=== PATIENT | female | born 1985 | race Caucasian/White ===

== ENCOUNTER 2018-05-04 08:26 | Emergency (ER) | payer SELFPAY | END 2018-05-04 09:16 | disposition home or self-care (01) | LOC: FTE 08:26 | DX: S80.12XA Contusion of left lower leg, initial encounter (principal); W18.39XA Other fall on same level, initial encounter; Y92.9 Unspecified place or not applicable | CPT/HCPCS: 99283 ==

== ENCOUNTER 2018-05-10 10:00 | Inpatient (IN) | payer MEDICAID ==
[2018-05-10] MEDS: ACETAMINOPHEN 500 MG TAB PO (11:48)
[2018-05-10] MEDS: morphine 2 MG INJ IV (11:48)
[2018-05-10] MEDS: ONDANSETRON 4 MG INJ IV (11:48)
[2018-05-10] MEDS: SODIUM CHLORIDE 0.9% 1L BAG IV* (11:49)
[2018-05-10 12:07] LABS: ADD MAN DIFF? NO
[2018-05-10 12:10] LABS: WHITE BLOOD COUNT 24.1 10^3/ul (4.8-10.8)
[2018-05-10 12:10] LABS: BASOPHIL # 0.1 10^3/ul (0.0-0.1); BASOPHILS % 0.4 % (0.0-2.0); EOSINOPHILS # 0.1 10^3/ul (0.0-0.5); EOSINOPHILS % 0.3 % (0.0-7.0); HEMATOCRIT 28.1 % (37.0-47.0); HEMOGLOBIN 9.3 g/dl (12.0-16.0); LYMPHOCYTES # 1.6 10^3/ul (0.8-2.9); LYMPHOCYTES % 6.7 % (15.0-51.0); MEAN CORPUSCULAR HEMOGLOBIN 29.2 pg (29.0-33.0); MEAN CORPUSCULAR HGB CONC 33.1 g/dl (32.0-37.0); MEAN CORPUSCULAR VOLUME 88.4 fl (82.0-101.0); MEAN PLATELET VOLUME 9.4 fl (7.4-10.4); MONOCYTE # 1.4 10^3/ul (0.3-0.9); MONOCYTES % 5.8 % (0.0-11.0); NEUTROPHILS % 83.1 % (39.0-77.0); PLATELET COUNT 558 10^3/UL (140-415); RED BLOOD COUNT 3.18 10^6/ul (4.20-5.40); RED CELL DISTRIBUTION WIDTH 13.4 % (11.5-14.5)
[2018-05-10 12:28] LABS: CREATINE KINASE 95 IU/L (23-200)
[2018-05-10 12:30] LABS: ALANINE AMINOTRANSFERASE 60 IU/L (13-69); ALBUMIN 3.1 g/dl (3.3-4.9); ALBUMIN/GLOBULIN RATIO 0.77; ALKALINE PHOSPHATASE 337 IU/L (42-121); ANION GAP 13 (5-13); ASPARTATE AMINO TRANSFERASE 79 IU/L (15-46); BILIRUBIN,INDIRECT 0.3 mg/dl (0-1.1); BILIRUBIN,TOTAL 1.1 mg/dl (0.2-1.3); BLOOD UREA NITROGEN 12 mg/dl (7-20); CALCIUM 8.4 mg/dl (8.4-10.2); CARBON DIOXIDE 32 mmol/L (21-31); CHLORIDE 93 mmol/L (97-110); CREATININE 0.54 mg/dl (0.44-1.00); Estimated GFR > 60 mL/min (>60); GLUCOSE 140 mg/dl (70-220); LIPASE 56 U/L (23-300); POTASSIUM 3.7 mmol/L (3.5-5.1); SODIUM 138 mmol/L (135-144); TOTAL PROTEIN 7.1 g/dl (6.1-8.1)
[2018-05-10 12:41] LABS: TROPONIN-I < 0.012 ng/ml (0.000-0.120)
[2018-05-10 13:10] LABS: C-REACTIVE PROTEIN 34.5 mg/dl (0.0-0.9)
[2018-05-10] MEDS: PIPER-TAZO 3.375 GM IV (PMX) 100 ML IVPB ×2 (13:22→21:36)
[2018-05-10 13:25] LABS: INR 1.11; PROTIME 14.4 Sec (11.9-14.9); PT RATIO 1.1
[2018-05-10 13:26] LABS: PARTIAL THROMBOPLASTIN TIME 30.2 Sec (23.0-35.0)
[2018-05-10] MEDS ORDERED: IBUPROFEN 600 MG TAB (13:44)
[2018-05-10] MEDS: IBUPROFEN 800 MG TAB PO (13:47)
[2018-05-10] MEDS: SOD CHLORIDE 0.9% 100 ML (14:00)
[2018-05-10] MEDS: IOHEXOL 300MG/ML 150 ML BTL (14:00)
[2018-05-10] MEDS ORDERED: ACETAMINOPHEN 325 MG TAB PO (14:30)
[2018-05-10] MEDS ORDERED: ONDANSETRON 4 MG INJ IV ×2 (14:30→16:30)
[2018-05-10] MEDS: HYDROmorphONE 0.5 MG/0.5 ML SYG IV ×3 (14:41→22:49)
[2018-05-10] MEDS: VANCOMYCIN 1 GM (PMX) 250 ML IVPB (15:01)
[2018-05-10 15:05] LABS: LACTIC ACID 1.3 mmol/L (0.5-2.0)
[2018-05-10] MEDS ORDERED: NACL 0.9% 3 ML SYG IV (16:30)
[2018-05-10] MEDS ORDERED: VANCOMYCIN IV PER PHARMACY XX (17:00)
[2018-05-10 17:08] LABS: HIV 1&2 ANTIBODY NEGATIVE (NEGATIVE)
[2018-05-10 17:25] LABS: HAAIG REFLEX REFLEX FILED
[2018-05-10] MEDS: SOD CHLORIDE 0.9% 1,000 ML IV (18:00)
[2018-05-10 18:04] LABS: HEPATITIS B SURFACE ANTIGEN NEGATIVE (NEGATIVE)
[2018-05-10 18:22] LABS: HEPATITIS B CORE ANTIBODY NEGATIVE (NEGATIVE); HEPATITIS C VIRAL ANTIBODY NEGATIVE (NEGATIVE)
[2018-05-10] MEDS: VANCOMYCIN 500 MG (PMX) 100 ML IVPB (18:51)
[2018-05-10] MEDS: DOCUSATE SODIUM 100 MG CAP PO (21:00)
[2018-05-10] MEDS: HYDROCODONE/APAP (5/325) TAB PO (22:14)
[2018-05-11] MEDS: morphine 4 MG/ML VIAL IV ×5 (00:28→22:58)
[2018-05-11] MEDS: PIPER-TAZO 3.375 GM IV (PMX) 100 ML IVPB ×4 (02:17→17:43)
[2018-05-11] MEDS: SOD CHLORIDE 0.9% 1,000 ML IV ×3 (02:22→20:44)
[2018-05-11 03:20] LABS: ADD UMIC YES; UR ASCORBIC ACID NEGATIVE (NEGATIVE); UR BACTERIA FEW /HPF (NONE SEEN); UR BILIRUBIN (Dip) NEGATIVE (NEGATIVE); UR BLOOD (Dip) NEGATIVE (NEGATIVE); UR CLARITY SLIGHTLY CLOUDY (CLEAR); UR COLOR AMBER (YELLOW); UR GLUCOSE (Dip) NEGATIVE (NEGATIVE); UR KETONES (Dip) NEGATIVE (NEGATIVE); UR LEUKOCYTE ESTERASE (Dip) 1+ Leu/ul (NEGATIVE); UR MUCUS FEW /HPF (NONE SEEN); UR NITRITE (Dip) NEGATIVE (NEGATIVE); UR RBC 2 /HPF (0-5); UR SQUAMOUS EPITHELIAL CELL FEW /HPF (FEW); UR TOTAL PROTEIN (Dip) NEGATIVE (NEGATIVE); UR UROBILINOGEN (Dip) 2+ mg/dL (NEGATIVE); UR WBC 75 /HPF (0-5)
[2018-05-11] MEDS: VANCOMYCIN 1 GM 250 ML IVPB ×3 (03:25→17:43)
[2018-05-11 05:41] LABS: ADD MAN DIFF? NO
[2018-05-11 05:43] LABS: ABNORMAL IP MESSAGE 1; BASOPHIL # 0.1 10^3/ul (0.0-0.1); BASOPHILS % 0.4 % (0.0-2.0); EOSINOPHILS # 0.2 10^3/ul (0.0-0.5); EOSINOPHILS % 0.5 % (0.0-7.0); HEMATOCRIT 28.9 % (37.0-47.0); HEMOGLOBIN 9.1 g/dl (12.0-16.0); LYMPHOCYTES # 2.4 10^3/ul (0.8-2.9); LYMPHOCYTES % 8.3 % (15.0-51.0); MEAN CORPUSCULAR HEMOGLOBIN 28.7 pg (29.0-33.0); MEAN CORPUSCULAR HGB CONC 31.5 g/dl (32.0-37.0); MEAN CORPUSCULAR VOLUME 91.2 fl (82.0-101.0); MEAN PLATELET VOLUME 9.5 fl (7.4-10.4); MONOCYTE # 1.4 10^3/ul (0.3-0.9); MONOCYTES % 4.9 % (0.0-11.0); NEUTROPHIL # 23.9 10^3/ul (1.6-7.5); NEUTROPHILS % 83.5 % (39.0-77.0); PLATELET COUNT 588 10^3/UL (140-415); RED BLOOD COUNT 3.17 10^6/ul (4.20-5.40); RED CELL DISTRIBUTION WIDTH 13.4 % (11.5-14.5)
[2018-05-11 05:43] LABS: WHITE BLOOD COUNT 28.6 10^3/ul (4.8-10.8)
[2018-05-11 06:02] LABS: POSITIVE DIFF @See below
[2018-05-11] MEDS: morphine SULFATE/PF (2 MG/2 ML) SYG IV (06:08)
[2018-05-11 06:15] LABS: PHOSPHORUS 4.9 mg/dl (2.5-4.9)
[2018-05-11 06:26] LABS: ALANINE AMINOTRANSFERASE 48 IU/L (13-69); ALBUMIN 2.8 g/dl (3.3-4.9); ALBUMIN/GLOBULIN RATIO 0.82; ALKALINE PHOSPHATASE 300 IU/L (42-121); ANION GAP 5 (5-13); ASPARTATE AMINO TRANSFERASE 50 IU/L (15-46); BILIRUBIN,INDIRECT 0.2 mg/dl (0-1.1); BILIRUBIN,TOTAL 0.9 mg/dl (0.2-1.3); BLOOD UREA NITROGEN 10 mg/dl (7-20); CALCIUM 8.3 mg/dl (8.4-10.2); CARBON DIOXIDE 30 mmol/L (21-31); CHLORIDE 100 mmol/L (97-110); CREATININE 0.56 mg/dl (0.44-1.00); Estimated GFR > 60 mL/min (>60); GLUCOSE 69 mg/dl (70-220); POTASSIUM 3.6 mmol/L (3.5-5.1); SODIUM 135 mmol/L (135-144); TOTAL PROTEIN 6.2 g/dl (6.1-8.1)
[2018-05-11] MEDS: DOCUSATE SODIUM 100 MG CAP PO ×2 (08:55→20:37)
[2018-05-11] MEDS: FENTAnyl 50 MCG/ML VIAL ×3 (10:00→10:35)
[2018-05-11] MEDS: MIDAZOLAM 1 MG/ML 2 ML INJ ×2 (10:05→10:26)
[2018-05-11] MEDS: LIDOCAINE 1% (MPF) 5 ML VIAL (10:35)
[2018-05-11] MEDS: morphine 10 MG INJ IV (12:08)
[2018-05-11] MEDS: HYDROCODONE/APAP (5/325) TAB PO (13:47)
[2018-05-11 15:03] LABS: RAPID PLASMA REAGIN NONREACTIVE (NR)
[2018-05-11] MEDS: LORAZEPAM 4 MG/ML VIAL IV (16:52)
[2018-05-11 17:24] LABS: VANCOMYCIN,TROUGH < 5.0 ug/ml (10.0-20.0)
[2018-05-11] MEDS: ACETAMINOPHEN 325 MG TAB PO (20:38)
[2018-05-12] MEDS: PIPER-TAZO 3.375 GM IV (PMX) 100 ML IVPB ×4 (00:19→17:51)
[2018-05-12] MEDS: LORAZEPAM 4 MG/ML VIAL IV ×4 (00:20→21:53)
[2018-05-12] MEDS: VANCOMYCIN 1.5 GM in SOD CHLORIDE 0.9% 250 ML IVPB (02:04)
[2018-05-12] MEDS: morphine 4 MG/ML VIAL IV ×6 (02:05→20:57)
[2018-05-12 06:26] LABS: ADD MAN DIFF? NO
[2018-05-12 06:27] LABS: WHITE BLOOD COUNT 23.9 10^3/ul (4.8-10.8)
[2018-05-12 06:27] LABS: BASOPHIL # 0.1 10^3/ul (0.0-0.1); BASOPHILS % 0.4 % (0.0-2.0); EOSINOPHILS # 0.1 10^3/ul (0.0-0.5); EOSINOPHILS % 0.5 % (0.0-7.0); HEMATOCRIT 27.7 % (37.0-47.0); HEMOGLOBIN 8.9 g/dl (12.0-16.0); LYMPHOCYTES # 2.3 10^3/ul (0.8-2.9); LYMPHOCYTES % 9.5 % (15.0-51.0); MEAN CORPUSCULAR HEMOGLOBIN 28.9 pg (29.0-33.0); MEAN CORPUSCULAR HGB CONC 32.1 g/dl (32.0-37.0); MEAN CORPUSCULAR VOLUME 89.9 fl (82.0-101.0); MEAN PLATELET VOLUME 10.9 fl (7.4-10.4); MONOCYTE # 1.1 10^3/ul (0.3-0.9); MONOCYTES % 4.6 % (0.0-11.0); NEUTROPHIL # 19.7 10^3/ul (1.6-7.5); NEUTROPHILS % 82.5 % (39.0-77.0); RED BLOOD COUNT 3.08 10^6/ul (4.20-5.40); RED CELL DISTRIBUTION WIDTH 13.7 % (11.5-14.5)
[2018-05-12 06:29] LABS: PLATELET COUNT 403 10^3/UL (140-415)
[2018-05-12 06:57] LABS: MAGNESIUM 2.1 mg/dl (1.7-2.5)
[2018-05-12 06:57] LABS: PHOSPHORUS 3.6 mg/dl (2.5-4.9)
[2018-05-12 07:18] LABS: ADD UMIC YES; UR ASCORBIC ACID NEGATIVE (NEGATIVE); UR BILIRUBIN (Dip) NEGATIVE (NEGATIVE); UR BLOOD (Dip) 2+ mg/dL (NEGATIVE); UR CLARITY CLEAR (CLEAR); UR COLOR YELLOW (YELLOW); UR GLUCOSE (Dip) NEGATIVE (NEGATIVE); UR KETONES (Dip) NEGATIVE (NEGATIVE); UR LEUKOCYTE ESTERASE (Dip) NEGATIVE Leu/ul (NEGATIVE); UR NITRITE (Dip) NEGATIVE (NEGATIVE); UR RBC 1 /HPF (0-5); UR SPECIFIC GRAVITY (Dip) 1.009 (1.003-1.030); UR TOTAL PROTEIN (Dip) NEGATIVE (NEGATIVE); UR UROBILINOGEN (Dip) NEGATIVE (NEGATIVE); UR WBC 2 /HPF (0-5)
[2018-05-12 07:22] LABS: ANION GAP 10 (5-13); BLOOD UREA NITROGEN 6 mg/dl (7-20); CALCIUM 8.2 mg/dl (8.4-10.2); CARBON DIOXIDE 30 mmol/L (21-31); CHLORIDE 96 mmol/L (97-110); CREATININE 0.47 mg/dl (0.44-1.00); Estimated GFR > 60 mL/min (>60); GLUCOSE 88 mg/dl (70-220); POTASSIUM 3.6 mmol/L (3.5-5.1); SODIUM 136 mmol/L (135-144)
[2018-05-12 07:59] LABS: AMPHETAMINE/METHAMPHETAMINE Negative (NEGATIVE); BARBITURATES Negative (NEGATIVE); CANNABINOIDS Negative (NEGATIVE); COCAINE Negative (NEGATIVE)
[2018-05-12 08:00] LABS: BENZODIAZEPINES Positive (NEGATIVE); OPIATES Positive (NEGATIVE)
[2018-05-12] MEDS: SOD CHLORIDE 0.9% 1,000 ML IV ×2 (08:22→12:23)
[2018-05-12] MEDS: DOCUSATE SODIUM 100 MG CAP PO ×2 (09:09→20:57)
[2018-05-12] MEDS: ZYVOX 600 MG TAB PO ×2 (12:23→20:57)
[2018-05-13] MEDS: PIPER-TAZO 3.375 GM IV (PMX) 100 ML IVPB ×5 (00:09→23:40)
[2018-05-13] MEDS: morphine 4 MG/ML VIAL IV ×8 (00:18→23:39)
[2018-05-13] MEDS: SOD CHLORIDE 0.9% 1,000 ML IV ×3 (01:51→14:22)
[2018-05-13 05:26] LABS: ADD MAN DIFF? NO
[2018-05-13 05:28] LABS: BASOPHILS % 0.3 % (0.0-2.0); EOSINOPHILS # 0.1 10^3/ul (0.0-0.5); EOSINOPHILS % 0.9 % (0.0-7.0); HEMATOCRIT 25.1 % (37.0-47.0); HEMOGLOBIN 7.9 g/dl (12.0-16.0); LYMPHOCYTES # 2.1 10^3/ul (0.8-2.9); LYMPHOCYTES % 14.4 % (15.0-51.0); MEAN CORPUSCULAR HEMOGLOBIN 28.5 pg (29.0-33.0); MEAN CORPUSCULAR HGB CONC 31.5 g/dl (32.0-37.0); MEAN CORPUSCULAR VOLUME 90.6 fl (82.0-101.0); MEAN PLATELET VOLUME 9.2 fl (7.4-10.4); MONOCYTE # 0.7 10^3/ul (0.3-0.9); MONOCYTES % 4.5 % (0.0-11.0); NEUTROPHIL # 11.5 10^3/ul (1.6-7.5); NEUTROPHILS % 78.1 % (39.0-77.0); PLATELET COUNT 627 10^3/UL (140-415); RED BLOOD COUNT 2.77 10^6/ul (4.20-5.40); RED CELL DISTRIBUTION WIDTH 13.6 % (11.5-14.5)
[2018-05-13 05:28] LABS: WHITE BLOOD COUNT 14.8 10^3/ul (4.8-10.8)
[2018-05-13 05:51] LABS: ANION GAP 7 (5-13); BLOOD UREA NITROGEN 4 mg/dl (7-20); CALCIUM 8.2 mg/dl (8.4-10.2); CARBON DIOXIDE 30 mmol/L (21-31); CHLORIDE 102 mmol/L (97-110); CREATININE 0.52 mg/dl (0.44-1.00); Estimated GFR > 60 mL/min (>60); GLUCOSE 106 mg/dl (70-220); POTASSIUM 3.7 mmol/L (3.5-5.1); SODIUM 139 mmol/L (135-144)
[2018-05-13 05:56] LABS: MAGNESIUM 2.2 mg/dl (1.7-2.5)
[2018-05-13 05:56] LABS: PHOSPHORUS 4.2 mg/dl (2.5-4.9)
[2018-05-13] MEDS: ZYVOX 600 MG TAB PO (08:46)
[2018-05-13] MEDS: DOCUSATE SODIUM 100 MG CAP PO ×2 (08:46→20:29)
[2018-05-13] MEDS: LORAZEPAM 2 MG INJ IV ×3 (09:50→21:29)
[2018-05-13] MEDS: HYDROCODONE/APAP (5/325) TAB PO (09:50)
[2018-05-14] MEDS: morphine 4 MG/ML VIAL IV ×3 (03:00→09:00)
[2018-05-14] MEDS: LORAZEPAM 2 MG INJ IV ×3 (03:48→23:08)
[2018-05-14] MEDS: PIPER-TAZO 3.375 GM IV (PMX) 100 ML IVPB ×3 (05:44→18:19)
[2018-05-14 06:06] LABS: ADD MAN DIFF? NO
[2018-05-14 06:15] LABS: BASOPHILS % 0.1 % (0.0-2.0); EOSINOPHILS # 0.2 10^3/ul (0.0-0.5); EOSINOPHILS % 1.3 % (0.0-7.0); HEMATOCRIT 25.5 % (37.0-47.0); HEMOGLOBIN 8.1 g/dl (12.0-16.0); LYMPHOCYTES # 2.3 10^3/ul (0.8-2.9); LYMPHOCYTES % 15.1 % (15.0-51.0); MEAN CORPUSCULAR HEMOGLOBIN 28.6 pg (29.0-33.0); MEAN CORPUSCULAR HGB CONC 31.8 g/dl (32.0-37.0); MEAN CORPUSCULAR VOLUME 90.1 fl (82.0-101.0); MONOCYTE # 0.7 10^3/ul (0.3-0.9); MONOCYTES % 4.9 % (0.0-11.0); NEUTROPHIL # 11.6 10^3/ul (1.6-7.5); NEUTROPHILS % 77.2 % (39.0-77.0); PLATELET COUNT 709 10^3/UL (140-415); RED BLOOD COUNT 2.83 10^6/ul (4.20-5.40); RED CELL DISTRIBUTION WIDTH 13.5 % (11.5-14.5)
[2018-05-14 06:15] LABS: WHITE BLOOD COUNT 15.1 10^3/ul (4.8-10.8)
[2018-05-14 06:36] LABS: ALANINE AMINOTRANSFERASE 25 IU/L (13-69); ALBUMIN 2.9 g/dl (3.3-4.9); ALBUMIN/GLOBULIN RATIO 0.72; ALKALINE PHOSPHATASE 237 IU/L (42-121); ANION GAP 10 (5-13); ASPARTATE AMINO TRANSFERASE 34 IU/L (15-46); BILIRUBIN,INDIRECT 0.2 mg/dl (0-1.1); BILIRUBIN,TOTAL 0.2 mg/dl (0.2-1.3); BLOOD UREA NITROGEN 4 mg/dl (7-20); CALCIUM 8.7 mg/dl (8.4-10.2); CARBON DIOXIDE 29 mmol/L (21-31); CHLORIDE 100 mmol/L (97-110); CREATINE KINASE 29 IU/L (23-200); CREATININE 0.49 mg/dl (0.44-1.00); Estimated GFR > 60 mL/min (>60); GLUCOSE 79 mg/dl (70-220); POTASSIUM 4.3 mmol/L (3.5-5.1); SODIUM 139 mmol/L (135-144); TOTAL PROTEIN 6.9 g/dl (6.1-8.1)
[2018-05-14 06:56] LABS: MAGNESIUM 2.2 mg/dl (1.7-2.5)
[2018-05-14] MEDS: DOCUSATE SODIUM 100 MG CAP PO ×2 (09:00→20:34)
[2018-05-14] MEDS: HYDROmorphONE 2 MG/ML SYG IV ×3 (12:02→20:34)
[2018-05-15] MEDS: PIPER-TAZO 3.375 GM IV (PMX) 100 ML IVPB ×5 (00:23→23:53)
[2018-05-15] MEDS: HYDROmorphONE 2 MG/ML SYG IV ×6 (00:40→21:13)
[2018-05-15 05:21] LABS: ADD MAN DIFF? NO
[2018-05-15 05:24] LABS: BASOPHILS % 0.3 % (0.0-2.0); EOSINOPHILS # 0.2 10^3/ul (0.0-0.5); EOSINOPHILS % 1.7 % (0.0-7.0); HEMATOCRIT 27.3 % (37.0-47.0); HEMOGLOBIN 8.6 g/dl (12.0-16.0); LYMPHOCYTES # 1.8 10^3/ul (0.8-2.9); LYMPHOCYTES % 18.1 % (15.0-51.0); MEAN CORPUSCULAR HEMOGLOBIN 28.9 pg (29.0-33.0); MEAN CORPUSCULAR HGB CONC 31.5 g/dl (32.0-37.0); MEAN CORPUSCULAR VOLUME 91.6 fl (82.0-101.0); MEAN PLATELET VOLUME 8.7 fl (7.4-10.4); MONOCYTE # 0.6 10^3/ul (0.3-0.9); NEUTROPHIL # 7.2 10^3/ul (1.6-7.5); NEUTROPHILS % 72.5 % (39.0-77.0); PLATELET COUNT 742 10^3/UL (140-415); RED BLOOD COUNT 2.98 10^6/ul (4.20-5.40); RED CELL DISTRIBUTION WIDTH 13.6 % (11.5-14.5)
[2018-05-15 05:24] LABS: WHITE BLOOD COUNT 9.9 10^3/ul (4.8-10.8)
[2018-05-15 05:57] LABS: ALANINE AMINOTRANSFERASE 32 IU/L (13-69); ALKALINE PHOSPHATASE 229 IU/L (42-121); ANION GAP 8 (5-13); ASPARTATE AMINO TRANSFERASE 33 IU/L (15-46); BILIRUBIN,INDIRECT 0.1 mg/dl (0-1.1); BLOOD UREA NITROGEN 7 mg/dl (7-20); CALCIUM 8.5 mg/dl (8.4-10.2); CARBON DIOXIDE 32 mmol/L (21-31); CHLORIDE 99 mmol/L (97-110); CREATININE 0.54 mg/dl (0.44-1.00); Estimated GFR > 60 mL/min (>60); GLUCOSE 120 mg/dl (70-220); POTASSIUM 4.2 mmol/L (3.5-5.1); SODIUM 139 mmol/L (135-144)
[2018-05-15 05:58] LABS: PHOSPHORUS 4.8 mg/dl (2.5-4.9)
[2018-05-15 05:58] LABS: ALBUMIN 2.9 g/dl (3.3-4.9); BILIRUBIN,TOTAL 0.1 mg/dl (0.2-1.3); MAGNESIUM 2.4 mg/dl (1.7-2.5)
[2018-05-15] MEDS: LORAZEPAM 2 MG INJ IV ×2 (07:32→20:23)
[2018-05-15] MEDS: DOCUSATE SODIUM 100 MG CAP PO ×2 (08:40→20:27)
[2018-05-15 09:21] LABS: OCCULT BLOOD STOOL NEGATIVE (NEGATIVE)
[2018-05-15] MEDS: HYDROCODONE/APAP (5/325) TAB PO ×3 (11:01→23:53)
[2018-05-16] MEDS: HYDROmorphONE 2 MG/ML SYG IV ×3 (01:07→10:39)
[2018-05-16] MEDS: PIPER-TAZO 3.375 GM IV (PMX) 100 ML IVPB ×4 (05:56→23:31)
[2018-05-16 06:35] LABS: HEMATOCRIT 29.2 % (37.0-47.0); HEMOGLOBIN 9.1 g/dl (12.0-16.0); MEAN CORPUSCULAR HEMOGLOBIN 28.3 pg (29.0-33.0); MEAN CORPUSCULAR HGB CONC 31.2 g/dl (32.0-37.0); MEAN PLATELET VOLUME 8.6 fl (7.4-10.4); PLATELET COUNT 856 10^3/UL (140-415); RED BLOOD COUNT 3.21 10^6/ul (4.20-5.40); RED CELL DISTRIBUTION WIDTH 13.1 % (11.5-14.5)
[2018-05-16 06:35] LABS: WHITE BLOOD COUNT 9.5 10^3/ul (4.8-10.8)
[2018-05-16 06:42] LABS: ADD MAN DIFF? YES; PATH REVIEW? YES
[2018-05-16 06:50] LABS: ALANINE AMINOTRANSFERASE 26 IU/L (13-69); ALBUMIN 3.3 g/dl (3.3-4.9); ALBUMIN/GLOBULIN RATIO 0.73; ALKALINE PHOSPHATASE 216 IU/L (42-121); ANION GAP 11 (5-13); ASPARTATE AMINO TRANSFERASE 31 IU/L (15-46); BILIRUBIN,INDIRECT 0.1 mg/dl (0-1.1); BILIRUBIN,TOTAL 0.1 mg/dl (0.2-1.3); BLOOD UREA NITROGEN 5 mg/dl (7-20); CALCIUM 9.2 mg/dl (8.4-10.2); CARBON DIOXIDE 29 mmol/L (21-31); CHLORIDE 101 mmol/L (97-110); CREATININE 0.42 mg/dl (0.44-1.00); Estimated GFR > 60 mL/min (>60); GLUCOSE 100 mg/dl (70-220); POTASSIUM 4.3 mmol/L (3.5-5.1); SODIUM 141 mmol/L (135-144); TOTAL PROTEIN 7.8 g/dl (6.1-8.1)
[2018-05-16 06:59] LABS: PHOSPHORUS 4.6 mg/dl (2.5-4.9)
[2018-05-16 06:59] LABS: MAGNESIUM 2.4 mg/dl (1.7-2.5)
[2018-05-16] MEDS: HYDROCODONE/APAP (5/325) TAB PO (07:41)
[2018-05-16] MEDS: DOCUSATE SODIUM 100 MG CAP PO ×2 (07:41→20:49)
[2018-05-16] MEDS: KETOROLAC 15 MG INJ IV (09:09)
[2018-05-16] MEDS: IOHEXOL 300MG/ML 150 ML BTL (10:03)
[2018-05-16] MEDS: SOD CHLORIDE 0.9% 100 ML (10:03)
[2018-05-16 10:32] LABS: BAND NEUTROPHILS #M 0.5 10^3/ul (0.0-0.6); BAND NEUTROPHILS % (M) 6 % (0-4); EOSINOPHILS % (M) 4 % (0-7); GIANT THROMBO% (M) 1 % (0-0); LYMPHOCYTES #M 1.9 10^3/ul (0.8-2.9); LYMPHOCYTES % (M) 20 % (15-51); MONOCYTE #M 0.3 10^3/ul (0.3-0.9); MONOCYTES % (M) 4 % (0-11); PLATELET ESTIMATE INCREASED; POLYCHROMASIA 3+ (0-0); SEG NEUT #M 6.5 10^3/ul (1.6-7.5); SEGMENTED NEUTROPHILS (M) % 68 % (39-77); SMUDGE%M 2 % (0-0)
[2018-05-16] MEDS ORDERED: ONDANSETRON 4 MG INJ IV (11:00)
[2018-05-16] MEDS: HYDROmorphONE 1 MG/ML SYG IV ×3 (14:09→23:26)
[2018-05-16] MEDS: LORAZEPAM 2 MG INJ IV (15:37)
[2018-05-16] MEDS: LACTOBACILLUS RHAMNOSUS CAP PO (20:49)
[2018-05-17] MEDS: LORAZEPAM 2 MG INJ IV
[2018-05-17] MEDS: HYDROmorphONE 1 MG/ML SYG IV ×7 (02:46→23:50)
[2018-05-17] MEDS: PIPER-TAZO 3.375 GM IV (PMX) 100 ML IVPB ×4 (05:42→23:53)
[2018-05-17 05:52] LABS: ADD MAN DIFF? NO
[2018-05-17 05:58] LABS: WHITE BLOOD COUNT 11.6 10^3/ul (4.8-10.8)
[2018-05-17 05:58] LABS: BASOPHILS % 0.3 % (0.0-2.0); EOSINOPHILS # 0.2 10^3/ul (0.0-0.5); EOSINOPHILS % 1.4 % (0.0-7.0); HEMATOCRIT 32.1 % (37.0-47.0); HEMOGLOBIN 10.2 g/dl (12.0-16.0); LYMPHOCYTES % 17.5 % (15.0-51.0); MEAN CORPUSCULAR HEMOGLOBIN 28.7 pg (29.0-33.0); MEAN CORPUSCULAR HGB CONC 31.8 g/dl (32.0-37.0); MEAN CORPUSCULAR VOLUME 90.2 fl (82.0-101.0); MEAN PLATELET VOLUME 8.2 fl (7.4-10.4); MONOCYTE # 0.6 10^3/ul (0.3-0.9); MONOCYTES % 4.8 % (0.0-11.0); NEUTROPHIL # 8.7 10^3/ul (1.6-7.5); PLATELET COUNT 909 10^3/UL (140-415); RED BLOOD COUNT 3.56 10^6/ul (4.20-5.40); RED CELL DISTRIBUTION WIDTH 13.4 % (11.5-14.5)
[2018-05-17 06:18] LABS: HEMOGLOBIN A1C 5.4 % (0-5.9)
[2018-05-17 06:27] LABS: CREATINE KINASE 20 IU/L (23-200)
[2018-05-17 06:32] LABS: ALANINE AMINOTRANSFERASE 27 IU/L (13-69); ALBUMIN 3.7 g/dl (3.3-4.9); ALBUMIN/GLOBULIN RATIO 0.78; ALKALINE PHOSPHATASE 233 IU/L (42-121); ANION GAP 12 (5-13); ASPARTATE AMINO TRANSFERASE 37 IU/L (15-46); BILIRUBIN,INDIRECT 0.1 mg/dl (0-1.1); BILIRUBIN,TOTAL 0.1 mg/dl (0.2-1.3); BLOOD UREA NITROGEN 6 mg/dl (7-20); CALCIUM 9.5 mg/dl (8.4-10.2); CARBON DIOXIDE 30 mmol/L (21-31); CHLORIDE 100 mmol/L (97-110); CREATININE 0.57 mg/dl (0.44-1.00); Estimated GFR > 60 mL/min (>60); GLUCOSE 99 mg/dl (70-220); POTASSIUM 4.5 mmol/L (3.5-5.1); SODIUM 142 mmol/L (135-144); TOTAL PROTEIN 8.4 g/dl (6.1-8.1)
[2018-05-17 06:33] LABS: PROTIME 13.3 Sec (11.9-14.9)
[2018-05-17] MEDS: DOCUSATE SODIUM 100 MG CAP PO ×2 (08:41→19:55)
[2018-05-17] MEDS: LACTOBACILLUS RHAMNOSUS CAP PO ×2 (08:41→19:55)
[2018-05-17] MEDS: BARIUM SULFATE 0.1% 450 ML BTL (VOLUMEN) PO ×2 (08:46→09:56)
[2018-05-17] MEDS: HYDROCODONE/APAP (10/325) TAB PO ×3 (10:15→19:55)
[2018-05-17] MEDS: SOD CHLORIDE 0.9% 100 ML (11:00)
[2018-05-17] MEDS: IOHEXOL 100 ML (11:09)
[2018-05-17] MEDS: ALTEPLASE 4 MG in SOD CHLORIDE 0.9% 20 ML CATHETER ×2 (17:05→23:00)
[2018-05-18] MEDS: HYDROCODONE/APAP (10/325) TAB PO ×3 (00:59→20:40)
[2018-05-18] MEDS: KETOROLAC 15 MG INJ IV ×4 (01:35→23:30)
[2018-05-18] MEDS: ALTEPLASE 4 MG in SOD CHLORIDE 0.9% 20 ML CATHETER ×3 (01:39→23:29)
[2018-05-18 05:25] LABS: ADD MAN DIFF? NO
[2018-05-18 05:34] LABS: WHITE BLOOD COUNT 11.7 10^3/ul (4.8-10.8)
[2018-05-18 05:34] LABS: BASOPHILS % 0.3 % (0.0-2.0); EOSINOPHILS # 0.2 10^3/ul (0.0-0.5); EOSINOPHILS % 1.4 % (0.0-7.0); HEMATOCRIT 29.4 % (37.0-47.0); HEMOGLOBIN 9.4 g/dl (12.0-16.0); LYMPHOCYTES % 17.4 % (15.0-51.0); MEAN CORPUSCULAR HEMOGLOBIN 28.8 pg (29.0-33.0); MEAN CORPUSCULAR VOLUME 90.2 fl (82.0-101.0); MEAN PLATELET VOLUME 8.2 fl (7.4-10.4); MONOCYTE # 0.7 10^3/ul (0.3-0.9); MONOCYTES % 6.2 % (0.0-11.0); NEUTROPHIL # 8.7 10^3/ul (1.6-7.5); NEUTROPHILS % 73.8 % (39.0-77.0); PLATELET COUNT 870 10^3/UL (140-415); RED BLOOD COUNT 3.26 10^6/ul (4.20-5.40); RED CELL DISTRIBUTION WIDTH 13.4 % (11.5-14.5)
[2018-05-18] MEDS: HYDROmorphONE 1 MG/ML SYG IV ×4 (05:45→18:59)
[2018-05-18] MEDS: PIPER-TAZO 3.375 GM IV (PMX) 100 ML IVPB ×4 (05:46→23:29)
[2018-05-18 05:49] LABS: IRON 36 ug/dl (35-150)
[2018-05-18 05:59] LABS: % IRON SATURATION 11 % SAT (22-52); TOTAL IRON BINDING CAPACITY 319 ug/dl (241-421)
[2018-05-18 06:04] LABS: ANION GAP 11 (5-13); BLOOD UREA NITROGEN 8 mg/dl (7-20); CALCIUM 9.2 mg/dl (8.4-10.2); CARBON DIOXIDE 30 mmol/L (21-31); CHLORIDE 101 mmol/L (97-110); CREATININE 0.58 mg/dl (0.44-1.00); Estimated GFR > 60 mL/min (>60); GLUCOSE 106 mg/dl (70-220); MAGNESIUM 2.2 mg/dl (1.7-2.5); PHOSPHORUS 5.7 mg/dl (2.5-4.9); POTASSIUM 4.2 mmol/L (3.5-5.1); SODIUM 142 mmol/L (135-144)
[2018-05-18] MEDS: LACTOBACILLUS RHAMNOSUS CAP PO ×2 (10:18→20:40)
[2018-05-18] MEDS: DOCUSATE SODIUM 100 MG CAP PO ×2 (10:18→21:00)
[2018-05-18] MEDS: IOHEXOL 14.3 MG(I)/ML (ADULT) BTL PO (12:07)
[2018-05-19] MEDS: HYDROmorphONE 1 MG/ML SYG IV ×4 (01:44→21:04)
[2018-05-19] MEDS: HYDROCODONE/APAP (10/325) TAB PO ×3 (03:42→17:26)
[2018-05-19 05:10] LABS: ADD MAN DIFF? NO
[2018-05-19 05:21] LABS: WHITE BLOOD COUNT 11.5 10^3/ul (4.8-10.8)
[2018-05-19 05:21] LABS: BASOPHILS % 0.3 % (0.0-2.0); EOSINOPHILS # 0.1 10^3/ul (0.0-0.5); EOSINOPHILS % 1.2 % (0.0-7.0); HEMATOCRIT 28.2 % (37.0-47.0); HEMOGLOBIN 9.1 g/dl (12.0-16.0); LYMPHOCYTES # 2.5 10^3/ul (0.8-2.9); LYMPHOCYTES % 21.9 % (15.0-51.0); MEAN CORPUSCULAR HEMOGLOBIN 28.9 pg (29.0-33.0); MEAN CORPUSCULAR HGB CONC 32.3 g/dl (32.0-37.0); MEAN CORPUSCULAR VOLUME 89.5 fl (82.0-101.0); MEAN PLATELET VOLUME 8.2 fl (7.4-10.4); MONOCYTE # 0.7 10^3/ul (0.3-0.9); MONOCYTES % 6.4 % (0.0-11.0); NEUTROPHILS % 69.6 % (39.0-77.0); PLATELET COUNT 821 10^3/UL (140-415); RED BLOOD COUNT 3.15 10^6/ul (4.20-5.40); RED CELL DISTRIBUTION WIDTH 13.6 % (11.5-14.5)
[2018-05-19 05:57] LABS: C-REACTIVE PROTEIN 3.2 mg/dl (0.0-0.9)
[2018-05-19] MEDS: PIPER-TAZO 3.375 GM IV (PMX) 100 ML IVPB ×3 (06:35→18:22)
[2018-05-19] MEDS: KETOROLAC 15 MG INJ IV (06:37)
[2018-05-19 07:43] LABS: ERYTHROCYTE SEDIMENTATION RATE 145 mm/Hr (0-20)
[2018-05-19] MEDS: LACTOBACILLUS RHAMNOSUS CAP PO ×2 (09:22→21:04)
[2018-05-19] MEDS: DOCUSATE SODIUM 100 MG CAP PO ×2 (09:22→21:04)
[2018-05-19] MEDS: MIDAZOLAM 1 MG/ML 2 ML INJ (13:53)
[2018-05-19] MEDS: LIDOCAINE 1% (MPF) 5 ML VIAL (13:54)
[2018-05-19] MEDS: FENTAnyl 50 MCG/ML VIAL (13:54)
[2018-05-19] MEDS: LORAZEPAM 2 MG INJ IV (16:21)
[2018-05-20] MEDS: HYDROCODONE/APAP (10/325) TAB PO ×3 (00:24→13:23)
[2018-05-20] MEDS: PIPER-TAZO 3.375 GM IV (PMX) 100 ML IVPB ×5 (00:24→23:00)
[2018-05-20] MEDS: HYDROmorphONE 1 MG/ML SYG IV ×4 (04:11→23:01)
[2018-05-20] MEDS: LACTOBACILLUS RHAMNOSUS CAP PO ×2 (08:59→21:21)
[2018-05-20] MEDS: LORAZEPAM 2 MG INJ IV ×2 (09:00→17:57)
[2018-05-20] MEDS: DOCUSATE SODIUM 100 MG CAP PO ×2 (09:00→21:21)
[2018-05-20 09:54] LABS: ADD MAN DIFF? NO
[2018-05-20 10:07] LABS: WHITE BLOOD COUNT 7.8 10^3/ul (4.8-10.8)
[2018-05-20 10:07] LABS: BASOPHILS % 0.4 % (0.0-2.0); EOSINOPHILS # 0.1 10^3/ul (0.0-0.5); EOSINOPHILS % 1.8 % (0.0-7.0); HEMATOCRIT 28.6 % (37.0-47.0); HEMOGLOBIN 9.1 g/dl (12.0-16.0); LYMPHOCYTES % 25.2 % (15.0-51.0); MEAN CORPUSCULAR HEMOGLOBIN 28.4 pg (29.0-33.0); MEAN CORPUSCULAR HGB CONC 31.8 g/dl (32.0-37.0); MEAN CORPUSCULAR VOLUME 89.4 fl (82.0-101.0); MEAN PLATELET VOLUME 8.1 fl (7.4-10.4); MONOCYTE # 0.5 10^3/ul (0.3-0.9); MONOCYTES % 5.9 % (0.0-11.0); NEUTROPHIL # 5.2 10^3/ul (1.6-7.5); NEUTROPHILS % 66.2 % (39.0-77.0); PLATELET COUNT 738 10^3/UL (140-415); RED CELL DISTRIBUTION WIDTH 13.5 % (11.5-14.5)
[2018-05-20 10:15] LABS: ALANINE AMINOTRANSFERASE 15 IU/L (13-69); ALBUMIN 3.6 g/dl (3.3-4.9); ALBUMIN/GLOBULIN RATIO 0.81; ALKALINE PHOSPHATASE 149 IU/L (42-121); ANION GAP 8 (5-13); ASPARTATE AMINO TRANSFERASE 25 IU/L (15-46); BILIRUBIN,INDIRECT 0.2 mg/dl (0-1.1); BILIRUBIN,TOTAL 0.2 mg/dl (0.2-1.3); BLOOD UREA NITROGEN 6 mg/dl (7-20); CALCIUM 9.2 mg/dl (8.4-10.2); CARBON DIOXIDE 29 mmol/L (21-31); CHLORIDE 101 mmol/L (97-110); CREATININE 0.63 mg/dl (0.44-1.00); Estimated GFR > 60 mL/min (>60); GLUCOSE 90 mg/dl (70-220); MAGNESIUM 2.1 mg/dl (1.7-2.5); PHOSPHORUS 4.3 mg/dl (2.5-4.9); POTASSIUM 3.9 mmol/L (3.5-5.1); SODIUM 138 mmol/L (135-144)
[2018-05-20 10:25] LABS: INR 0.99; PROTIME 13.2 Sec (11.9-14.9)
[2018-05-21] MEDS: HYDROCODONE/APAP (10/325) TAB PO ×4 (02:05→20:04)
[2018-05-21] MEDS: HYDROmorphONE 1 MG/ML SYG IV ×4 (05:00→23:24)
[2018-05-21] MEDS: PIPER-TAZO 3.375 GM IV (PMX) 100 ML IVPB ×4 (05:00→23:33)
[2018-05-21] MEDS: DOCUSATE SODIUM 100 MG CAP PO ×2 (08:13→20:04)
[2018-05-21] MEDS: LACTOBACILLUS RHAMNOSUS CAP PO ×2 (08:13→20:04)
[2018-05-21 14:38] LABS: WHITE BLOOD COUNT 6.4 10^3/ul (4.8-10.8)
[2018-05-21 14:38] LABS: ADD MAN DIFF? NO; BASOPHILS % 0.5 % (0.0-2.0); EOSINOPHILS # 0.2 10^3/ul (0.0-0.5); EOSINOPHILS % 2.5 % (0.0-7.0); HEMATOCRIT 29.5 % (37.0-47.0); HEMOGLOBIN 9.4 g/dl (12.0-16.0); LYMPHOCYTES # 2.1 10^3/ul (0.8-2.9); LYMPHOCYTES % 32.6 % (15.0-51.0); MEAN CORPUSCULAR HEMOGLOBIN 28.5 pg (29.0-33.0); MEAN CORPUSCULAR HGB CONC 31.9 g/dl (32.0-37.0); MEAN CORPUSCULAR VOLUME 89.4 fl (82.0-101.0); MONOCYTE # 0.4 10^3/ul (0.3-0.9); MONOCYTES % 6.1 % (0.0-11.0); NEUTROPHIL # 3.7 10^3/ul (1.6-7.5); RED CELL DISTRIBUTION WIDTH 13.4 % (11.5-14.5)
[2018-05-21 14:50] LABS: PLATELET COUNT 690 10^3/UL (140-415)
[2018-05-21 14:55] LABS: ANION GAP 7 (5-13); BLOOD UREA NITROGEN 9 mg/dl (7-20); CALCIUM 9.2 mg/dl (8.4-10.2); CARBON DIOXIDE 29 mmol/L (21-31); CHLORIDE 101 mmol/L (97-110); CREATININE 0.65 mg/dl (0.44-1.00); Estimated GFR > 60 mL/min (>60); GLUCOSE 91 mg/dl (70-220); POTASSIUM 4.1 mmol/L (3.5-5.1); SODIUM 137 mmol/L (135-144)
[2018-05-21] MEDS: FAMOTIDINE 20 MG TAB PO (18:03)
[2018-05-21] MEDS: IBUPROFEN 800 MG TAB PO ×2 (18:03→23:32)
[2018-05-22] MEDS: HYDROCODONE/APAP (10/325) TAB PO ×4 (01:42→20:09)
[2018-05-22] MEDS: HYDROmorphONE 1 MG/ML SYG IV ×4 (05:25→23:22)
[2018-05-22] MEDS: PIPER-TAZO 3.375 GM IV (PMX) 100 ML IVPB ×4 (05:36→23:22)
[2018-05-22] MEDS: IBUPROFEN 800 MG TAB PO ×4 (05:36→23:23)
[2018-05-22] MEDS: DOCUSATE SODIUM 100 MG CAP PO ×2 (08:28→20:10)
[2018-05-22] MEDS: LACTOBACILLUS RHAMNOSUS CAP PO ×2 (08:28→20:10)
[2018-05-22] MEDS: FAMOTIDINE 20 MG TAB PO (08:28)
[2018-05-23] MEDS: HYDROCODONE/APAP (10/325) TAB PO ×3 (02:39→15:01)
[2018-05-23] MEDS: HYDROmorphONE 2 MG TAB PO ×4 (03:35→16:37)
[2018-05-23] MEDS: IBUPROFEN 800 MG TAB PO ×3 (06:25→18:00)
[2018-05-23] MEDS: PIPER-TAZO 3.375 GM IV (PMX) 100 ML IVPB (06:25)
[2018-05-23] MEDS: FAMOTIDINE 20 MG TAB PO (07:56)
[2018-05-23] MEDS: LACTOBACILLUS RHAMNOSUS CAP PO (07:56)
[2018-05-23] MEDS: DOCUSATE SODIUM 100 MG CAP PO (07:56)
[2018-05-23] MEDS: ENOXAPARIN 30 MG/0.3 ML SYG SC (08:01)
[2018-05-23] MEDS: AMOXICILLIN/CLAV 875 MG TAB PO (08:05)
== END 2018-05-23 19:04 | disposition home health service (06) | DRG 853 ==
LOC: 2NE 05-14 05:04 → FTE 10:00 → 2NE 14:05
PROVIDERS: Internal Medicine
PROC: 0W9H30Z Drainage of Retroperitoneum with Drainage Device, Percutaneous Approach (ICD-10-PCS; principal; 2018-05-11)
PROC: 0WPH30Z Removal of Drainage Device from Retroperitoneum, Percutaneous Approach (ICD-10-PCS; 2018-05-19)
PROC: 0K9P30Z Drainage of Left Hip Muscle with Drainage Device, Percutaneous Approach (ICD-10-PCS; 2018-05-19)
DX: A41.9 Sepsis, unspecified organism (principal); K68.12 Psoas muscle abscess; K68.19 Other retroperitoneal abscess; K86.2 Cyst of pancreas; D50.9 Iron deficiency anemia, unspecified; D64.9 Anemia, unspecified; D47.3 Essential (hemorrhagic) thrombocythemia; E88.09 Other disorders of plasma-protein metabolism, not elsewhere classified; F19.90 Other psychoactive substance use, unspecified, uncomplicated; F41.9 Anxiety disorder, unspecified; K59.00 Constipation, unspecified; M25.552 Pain in left hip; R53.81 Other malaise; R19.09 Other intra-abdominal and pelvic swelling, mass and lump; R74.0 Nonspecific elevation of levels of transaminase and lactic acid dehydrogenase [LDH]; S30.0XXA Contusion of lower back and pelvis, initial encounter; W19.XXXA Unspecified fall, initial encounter
CPT/HCPCS: 36415; 71045; 74177; 74178; 76856; 77012; 80048; 80053; 80202; 80307; 81001; 82270; 82550; 82728; 83036; 83540; 83605; 83690; 83735; 84100; 84443; 84484; 84703; 85025; 85610; 85651; 85730; 86140; 86592; 86703; 86704; 86709; 86803; 87040; 87070; 87075; 87086; 87102; 87340; 87400; 87591; 93005; 96361; 96374; 96375; 97110; 97116; 97162; 97167; 97530; 99291-25

== ENCOUNTER 2018-06-15 23:22 | Emergency (ER) | payer SELFPAY, MEDICAID | END 2018-06-16 00:20 | disposition left against medical advice (07) | LOC: FTE 23:22 | DX: Z53.21 Procedure and treatment not carried out due to patient leaving prior to being seen by health care provider (principal) ==